=== PATIENT | male | born 1980 | race Caucasian/White ===

== ENCOUNTER → 2021-05-13 | Day surgery (SDC) | payer OTHER ==
[~2021-05-13] MED LIST: LEVOTHYROXINE200 MC2 PO; NORCO5 PO
--- NOTE | ~2021-05-13 | OP ---
[facility] [address] [place] [address] OPERATIVE REPORT Name: LOVELY ENGLISH Room: [facility].#: [id number] Admission: 05/13/21 Attend Phys: Bryn Perez Discharge: Date of : 80 Report #: [id number] THIS REPORT FOR: cc: FAM - No family physician/PCP FAM - No family physician/PCP Bryn Perez MD ~ DATE OF SURGERY: 05/13/2021 PREOPERATIVE DIAGNOSIS: Incarcerated umbilical hernia. POSTOPERATIVE DIAGNOSIS: Incarcerated umbilical hernia. OPERATION: Laparoscopic repair of incarcerated ventral hernia with mesh. SURGEON: Bryn Perez MD ANESTHESIA: General. ESTIMATED BLOOD LOSS: Minimal. SPECIMENS: None. DESCRIPTION OF PROCEDURE: After informed consent was obtained, the patient was brought to the operating room and placed supine. SCDs were placed and working, preoperative antibiotics were administered, general anesthesia was induced. The abdomen was prepped and draped in the usual sterile fashion. A 5 mm incision was made in the left upper quadrant. A 5 mm trocar was placed under direct vision. Pneumoperitoneum was established. Left and right-sided 5 mm trocars were placed under direct vision. He had a small umbilical hernia defect. Preperitoneal fat was fully reduced. Defect measured approximately 1 cm. I then inserted a Bard Ventralight mesh. This was an 11 x 15 cm mesh that had been cut into an 11 cm [place]. I was brought into the abdominal wall. It was tacked with approximately 25 absorbable tacks. I then placed a transfascial 2-0 Ethibond suture using a PMI suture passer in the superior midline portion of the mesh. The mesh laid nice and flat and covered the defect widely. The ports were then removed under direct vision. Skin was closed with 4-0 Monocryl. Incisions were dressed with Steri-Strips. COMPLICATIONS: [place] [address] OPERATIVE REPORT Name: LOVELY ENGLISH Room: [facility]#: [id number] Admission: 05/13/21 Attend Phys: Bryn Perez Discharge: Date of : 80 Report #: [id number] DISPOSITION: The patient was taken to recovery in satisfactory condition. By: [id number] Perez MD /nt
== END | disposition home or self-care (01) ==
LOC: M.SUR 05:42
PROVIDERS: ATTEND Surgery
DX: K42.0 Umbilical hernia with obstruction, without gangrene (principal); R10.33 Periumbilical pain; Z20.822 Contact with and (suspected) exposure to COVID-19